=== PATIENT | female | born 1995 | race Caucasian/White ===

== ENCOUNTER 2019-03-01 10:22 | Emergency (ER) | payer SELFPAY ==
[2019-03-01 10:24] VITALS: BP 129/82; PULSE 96; RESP 17; TEMP 36.9; O2SAT 100; BMI 29.8
--- NOTE | 2019-03-01 10:40 | ED.VIS.GEN ---
History of Present Illness Chief Complaint: Vag Bleeding Narrative: Patient presenting for evaluation due to concern for possible miscarriage. Patient states that she has a underlying history of irregular periods. She states that she has not had a menstrual cycle since October. Patient states that on she started to have some vaginal bleeding. It began to be associated with some cramping, heavier bleeding today, and then she passed what she felt like was tissue. Patient is never been before, she did not take a test at home with this. She is unsure of her blood type. She states that since passing the tissue, the bleeding and cramping has since slowed down. She denies any history of bleeding dyscrasias. Is not any sort of medications. Review of systems otherwise negative. Past Medical History - Allergies and Home Meds Allergies/Adverse Reactions: Allergies No Known Allergies Allergy (Verified 03/01/19 10:23) Primary Care Physician: Aniyah Zamarripa [STAFF PHYSICIAN] - 3-5 Days Past Medical History: None Smoking Status: Never smoker Review of Systems All systems negative except as indicated Genitourinary: Reports: - - Vaginal bleeding and loss of tissue Physical Exam Vital Signs/Narrative: Vital Signs Temp Pulse Resp BP Pulse Ox 03/01/19 10:24 98.5 F 96 17 129/82 H 100 General: Well nourished, Well developed, No Acute Distress Head: Normocephalic, Atraumatic Eyes: Perrl, EOMI ENT: Moist mucous membranes, No rhinorrhea Neck: Supple, Nontender Cardiovascular: Regular rate, Regular rhythm, No murmurs Respiratory: No distress, CTA bilaterally, Chest nontender Abdomen: Soft, Nontender, Nondistended, Normal bowel sounds Back: Nontender, Normal Inspection Extremities: Nontender, No edema Skin: Normal color, No rash Neurological: Alert, Oriented x3, Cranial nerves II-XII grossly intact, Normal Strength, Normal Sensation Psychological: Normal affect, Normal Mood Diagnostic/Tx/Re-eval - Medical Decision Making Patient presented with possible miscarriage. I did examine what the patient stated was potentially her products of conception, and it does seem like this is products of conception rather than blood clot. ABO Rh was sent as well as test. test was found to be positive. Patient was found to have O- blood type. She was ordered RhoGam. I did discuss the patient's case with EMPLOYEE COMMUNICATIONS MANAGER to arrange close follow-up. I educated the patient on signs and symptoms of retained products of conception and the importance of follow-up with EMPLOYEE COMMUNICATIONS MANAGER. Patient was discharged in stable condition. ED Disposition - Plan for ED Patient: Disposition: Home or Assisted Living Diagnosis: Complete miscarriage, Type O blood, Rh negative Instructions: Miscarriage Referrals: Aniyah Zamarripa [STAFF PHYSICIAN] - 3-5 Days
[2019-03-01 11:06] LABS: Internal QC Validated? YES +Cl - CLEAR BKGD; Pregnancy, Serum, hCG Quali. POSITIVE Negative
[2019-03-01 13:16] VITALS: BP 108/63; PULSE 73; RESP 18; O2SAT 98
== END 2019-03-01 13:18 | disposition home or self-care (01) ==
PROVIDERS: Emergency Provider Emergency Medicine
DX: O03.9 Complete or unspecified spontaneous abortion without complication (principal)
CPT/HCPCS: 84703; 86900; 86901; 90384; 96372; 99282; J2790

== ENCOUNTER → 2019-11-18 11:15 | Outpatient (CLI) | payer SELFPAY ==
[2019-10-02 09:53] VITALS: BMI 29.8
[2019-11-18 10:59] VITALS: BMI 29.8
[2019-11-18 11:36] LABS: Absolute Lymphocyte Count 2.07 X10^3/uL (0.83-4.51); Absolute Neutrophil Count 9.3 X10^3/uL (2.0-7.7); Basophil# 0.04 X10^3/uL; Basophil% 0.3 % (0-1); Eosinophil# 0.23 X10^3/uL; Eosinophils% 1.8 % (0-5); Hematocrit 36.5 % (37-47); Hemoglobin 12.7 g/dL (12.0-15.0); Lymphocyte # 2.07 X10^3/ul (4.0); Lymphocyte % 16.6 % (19-41); Mean Corp Hgb Conc 34.8 g/dL (32-36); Mean Corpuscular Hgb 32.1 pg (27.0-32.0); Mean Corpuscular Volume 92.2 fL (81-99); Monocyte# 0.75 X10^3/uL; NRBC Flagged by Analyzer 0 % (0-5); Neutrophil % 74.6 % (47-70); Platelet Count 214 K/mm3 (150-450); RBC Distribution Width CV 12.6 % (11.6-14.6); RBC Distribution Width SD 41.6 fl (35.1-43.9); Red Blood Count 3.96 M/mm3 (4.2-5.4); White Blood Count 12.5 K/mm3 (4.4-11.0)
--- NOTE | 2019-11-18 18:00 | US_ITS ---
STUDY: SECOND AND THIRD TRIMESTER OBSTETRICAL ULTRASOUND REASON FOR EXAM: Female, 23 years old ANATOMY LMP: July 03, 2019. TECHNIQUE: Transabdominal TECHNICAL QUALITY: Adequate. PRIOR ULTRASOUND: None. FINDINGS: There is a single intrauterine fetus. The fetus is in a breech presentation. There is demonstrated cardiac activity with a heart rate of 143/169 bpm. There is a normal amniotic fluid volume. The largest amniotic fluid pocket measures 5.6 cm. The amniotic fluid index (NILA) is within normal limits. The placenta is posterior in location and is not low lying. There are Grade 1 placental changes. The cervix measures 4.3 cm in length. The bilateral adnexal regions are normal. BIOMETRY: BPD: 4.11 cm: 18 weeks, 4 days HC: 16.73 cm: 19 weeks, 3 days AC: 13.9 cm: 9 weeks, 3 days FL: 3.41 cm: 20 weeks, 6 days CI: 71% FL/BPD: 83% FL/HC: FL/AC: 25% HC/AC: 1.2 age by current US: 19 weeks, 4 days. KIKO by current US: April 09, 2020. Estimated weight: 317 grams, +/- 46 grams, 54 %. Age by LMP: 19 weeks, 5 days. KIKO by LMP: April 08, 2020. ANATOMY: Gender: Female Cranium: Normal lateral ventricles. Normal choroid plexus. Normal cerebellum. Normal cisterna magna. Normal face, nose and lips. Chest: Normal 4-chamber heart. Abdomen/Pelvis: Normal diaphragm. Normal stomach. Normal abdominal wall. Normal cord insertion. Normal 3 vessel cord. Normal kidneys. Normal bladder. Spine: Normal cervical spine. Normal thoracic spine. Normal lumbar spine. Normal sacrum. Extremities: Normal bilateral upper extremities. Normal bilateral lower extremities. US/OB Anatomy Scan IMPRESSION: Single live intrauterine gestation with a mean gestational age of 19 weeks and 4 days. Electronically Signed: Brent Baker, at 15:48 EDT , Service support ,
== END ==
PROVIDERS: Nurse Practitioner Women's Health; Referring Provider Obstetrics & Gynecology; Visit Provider Obstetrics & Gynecology
DX: Z34.00 Encounter for supervision of normal first pregnancy, unspecified trimester (principal); Z3A.13 13 weeks gestation of pregnancy
CPT/HCPCS: 36415; 76805; 85025; 87086; 87088

== ENCOUNTER → 2020-01-16 10:48 | Outpatient (CLI) | payer SELFPAY ==
[2019-12-19 11:02] VITALS: BMI 29.8
[2020-01-16 11:18] LABS: Absolute Lymphocyte Count 1.95 X10^3/uL (0.83-4.51); Basophil# 0.04 X10^3/uL; Basophil% 0.3 % (0-1); Eosinophil# 0.19 X10^3/uL; Eosinophils% 1.6 % (0-5); Hematocrit 32.5 % (37-47); Hemoglobin 11.3 g/dL (12.0-15.0); Lymphocyte # 1.95 X10^3/ul (4.0); Mean Corp Hgb Conc 34.8 g/dL (32-36); Mean Corpuscular Hgb 32.8 pg (27.0-32.0); Mean Corpuscular Volume 94.2 fL (81-99); Mean Platelet Vol. 11.5 fl (6.2-12.0); Monocyte# 0.78 X10^3/uL; Monocyte% 6.4 % (0-10); NRBC Flagged by Analyzer 0 % (0-5); Neutrophil # 8.97 X10^3/uL (2.7-7.7); Neutrophil % 73.6 % (47-70); Platelet Count 216 K/mm3 (150-450); RBC Distribution Width CV 13.1 % (11.6-14.6); RBC Distribution Width SD 44.9 fl (35.1-43.9); Red Blood Count 3.45 M/mm3 (4.2-5.4); White Blood Count 12.2 K/mm3 (4.4-11.0)
[2020-01-16 11:27] LABS: Glucose Challenge Gest 1H 50g 100 mg/dL (70-140)
== END ==
PROVIDERS: Referring Provider Obstetrics & Gynecology; Visit Provider Obstetrics & Gynecology
DX: Z34.90 Encounter for supervision of normal pregnancy, unspecified, unspecified trimester (principal); Z67.91 Unspecified blood type, Rh negative
CPT/HCPCS: 36415; 82950; 85025; 86850; 86900; 86901

== ENCOUNTER → 2020-03-11 16:52 | Outpatient (CLI) | payer SELFPAY ==
[2020-03-11 15:56] VITALS: BMI 33.1
== END ==
PROVIDERS: Visit Provider Obstetrics & Gynecology
DX: Z34.90 Encounter for supervision of normal pregnancy, unspecified, unspecified trimester (principal)
CPT/HCPCS: 87081

== ENCOUNTER 2020-03-31 18:38 | Inpatient (IN) | payer SELFPAY ==
[2020-03-26 14:21] VITALS: BMI 34.0
[2020-03-31] VITALS (16 sets, daily range): BP systolic 104–135; BP diastolic 55–84; PULSE 78–112; RESP 16–20; TEMP 36.2–37.5; O2SAT 96–100; BMI 33.3
[2020-03-31] MEDS: Lactated Ringers 1,000 ML 999 ML IV (18:20)
[2020-03-31 18:52] LABS: Mucous, Urine 0 SEEN /hpf (<or=2+); Red Blood Cells-Urine 0 SEEN /hpf (0-5)
--- NOTE | 2020-03-31 18:54 | PCM.HP.OB ---
- Problem List (1) Non-reassuring status Status: Acute (2) Decreased movements, third trimester, fetus 1 Status: Acute (3) 38 weeks gestation of Status: Acute Comment: COVID TESTING ORDERED 03/24/2020sc (4) Influenza vaccination declined Status: Acute Comment: 02/27/2020sc (5) Supervision of normal first Status: Acute Comment: (declined all NOB labs) KIKO 04/08/2020 Spouse: Adonay (6) Rh negative state in antepartum period Status: Acute Comment: O neg rhogam at 28 weeks- 01/15 (7) Status: Acute Qualifiers: Comment: declines genetic, carrier and NTD screening. encouraged urine culture, cbc t and s and rubella. Anatomy normal History Date of Admission: 03/31/20 Final KIKO: 04/08/20 Final KIKO Source: US <20 weeks Gestational age: 38 Weeks and 6 Days History of this : This is a 24 year-old, G 1 P 0, at 38 weeks gestational age who presented to OB triage for decreased movement. Upon arrival, she was noted to have minimal to absent variability with occasional late decelerations. The only periods of moderate variability were during decelerations. Baby did not respond to Vibra acoustic stimulation. A bedside biophysical profile was performed and was found to be 2 out of 10 with 2 points for fluid. There was no breathing or movement noted on biophysical profile. Medical History: Medical History (Last Reviewed 03/26/20 @ 14:02 by Vira Luna) H/O cardiac murmur Z86.79 H/O miscarriage, currently O09.299 Surgical History: Surgical History (Last Reviewed 03/26/20 @ 14:02 by Vira Luna) No significant past surgical history Allergies No Known Allergies Allergy (Verified 03/26/20 14:01) Home Medications: Home Medications multivitamin no.47-iron fum 27 mg-folate no.1 1 mg-dha 300 mg capsule cap PO 08/25/19 Boostrix Tdap 2.5 Lf unit-8 mcg-5 Lf/0.5 mL intramuscular syringe 0.5 ml IM ONCE #1 ml NS 01/16/20 Smoking Status: Never smoker Alcohol: None NST - FHR Rate Baby A Baseline: 150 Variability:: Minimal Accelerations:: None Decelerations:: Late NST Reactive:: Non-Reactive FHR Category:: Category II Uterine Activity:: rare contractions History Past Pregnancies: - hx SAB Expected Delivery Method: FILIPE Section Review of Systems Constitutional: Denies: Chills, Fever, Weight Change HEENT: Denies: Head Aches, Sinus Congestion, Sinus Drainage Cardiovascular: Denies: Chest Pain, Palpitations Respiratory: Denies: Cough, Shortness of breath at rest, Sputum production Gastrointestinal: Denies: Abdominal Pain, Nausea, Vomiting Genitourinary: Denies: Dysuria Musculoskeletal: Denies: Joint Pain, Joint Tenderness Skin: Denies: Rash, Wounds Neurological: Denies: Numbness, Tingling, Focal weakness Psychiatric: Denies: Anxiety, Depression, Homicidal Ideations, Suicidal Ideations Hematologic/ Lymphatic: Denies: Easy Bruising, Easy Bleeding Physical Exam Vitals: Vital Signs Temp Pulse BP Pulse Ox 99.5 F H 111 H 135/84 H 99 03/31/20 18:46 03/31/20 18:49 03/31/20 18:48 03/31/20 18:49 General: Alert, Oriented x3, No apparent distress HEENT: Atraumatic, Normocephalic. Negative for: Thyromegaly, Lymphadenopathy Cardiovascular: Regular rate Lungs: Normal air movement Abdomen: Bowel Sounds Present, Gravid, Appropriate for Gestational Age Neurological: Deep Tendon Reflexes 2+/4 and Symmetrical, Neuro grossly intact ORDER BOOKER: Normal external genitalia, Vulvar lesions Presentation: Cephalic Assessment/Plan All Active Problems (Last Reviewed 03/26/20 @ 14:02 by Vira Luna) Non-reassuring status (Acute) Decreased movements, third trimester, fetus 1 (Acute) 38 weeks gestation of (Acute) Influenza vaccination declined (Acute) Supervision of normal first (Acute) Rh negative state in antepartum period (Acute) (Acute) BMI 31.0-31.9,adult (Resolved) This is a 24 year-old, G 2, P 0, at 38 weeks gestational age admitted for 08/04 BPP. 1. Non-reassuring status Patient presented to OB triage for decreased movement. Found to have minimal to absent variability with late decelerations. Biophysical profile in triage was 2 out of 10. Recommendation was made that given patient is nulliparous and it was only fingertip in the office the recommendation would be to put proceed with a primary section. The risk, benefits, indications, and alternatives to the procedure were discussed with the patient including bleeding, infection, and visceral or vascular injury. Patient voiced understanding and agreed to proceed. All staff notified of plan to proceed with primary section as soon as possible. Ancef 2 g for antibiotic prophylaxis Blood type is Rh- Rubella pending Patient is [id number] OB labs ordered on admission.
[2020-03-31] MEDS: Sodium Citrate/Citric Acid 30 ML UDC PO (19:01)
[2020-03-31] MEDS: Cefazolin 2 GM in 0.9% Normal Saline 100 ML IV (19:03)
[2020-03-31 19:04] LABS: Color, Urine Yellow (Yellow); Glucose, Dipstick Normal (Normal); Ketone-Dipstick Negative (Negative); Leukocyte Esterase-Dipstick 500 /ul (Negative); Nitrite-Dipstick Negative (Negative); Occult Blood-Urine Negative /ul (Negative); Protein-Dipstick Negative (Negative); Urine Bilirubin Dipstick Negative (Negative); Urine Clarity Sl. Cloudy (Clear); Urine Urobilinogen Normal (Normal)
[2020-03-31 19:12] LABS: Squamous Epithelial Cells - UA 5-10 SEEN /hpf (5-10); White Blood Cells 10-25 SEEN /hpf (0-5)
[2020-03-31 19:13] LABS: Bacteria RARE /hpf (None Seen)
[2020-03-31 19:37] LABS: Absolute Neutrophil Count 8.4 X10^3/uL (2.0-7.7); Basophil# 0.03 X10^3/uL; Basophil% 0.2 % (0-1); Eosinophil# 0.17 X10^3/uL; Eosinophils% 1.4 % (0-5); Hematocrit 34.6 % (37-47); Hemoglobin 11.2 g/dL (12.0-15.0); Lymphocyte % 19.9 % (19-41); Mean Corp Hgb Conc 32.4 g/dL (32-36); Mean Corpuscular Hgb 29.6 pg (27.0-32.0); Mean Corpuscular Volume 91.5 fL (81-99); Mean Platelet Vol. 12.2 fl (6.2-12.0); Monocyte# 0.92 X10^3/uL; Monocyte% 7.6 % (0-10); NRBC Flagged by Analyzer 0 % (0-5); Neutrophil # 8.44 X10^3/uL (2.7-7.7); Neutrophil % 69.9 % (47-70); Platelet Count 224 K/mm3 (150-450); RBC Distribution Width CV 13.2 % (11.6-14.6); RBC Distribution Width SD 43.9 fl (35.1-43.9); Red Blood Count 3.78 M/mm3 (4.2-5.4); White Blood Count 12.1 K/mm3 (4.4-11.0)
--- NOTE | 2020-03-31 20:03 | PLAC_PTH ---
PATIENT: WANG THOMPSON LOC: [facility] U#:[id number] AGE/SX: 24/ ROOM: WP006 RE03/31/[address]: Dr. Sonja Milan MD : 1995 BED: 1 DIS: 04/02/2020 SPEC #: [id number] RECD: 04/01/20 08:45 STATUS: MAGNO RESuzie #: [id number] KRISTIN: 03/31/20 20:[address]: Sonja Milan DEPT: SURGICAL PATHOLOGY RECD BY: Leti Sahni ENTERED: 04/01/20 09:49 SP TYPE: PLACENTA OTHR DR: No Primary Care Phys Tissues: Placenta, NOS Procedures: Surgery Specimen Level V HEADER OPERATION: Primary section PRE-OP DIAGNOSIS: Labor TISSUE SUBMITTED: Placenta MICROSCOPIC DIAGNOSIS Placenta: Placental disc - third trimester placenta (633 gm). - Focal areas of intraparenchymal hemorrhage and infarction (largest measuring 1.5 cm in greatest dimension. - Focal villous congestion and hemorrhage. Membranes - focal circummarginate insertion. Umbilical cord - three blood vessels and focal increased spiraling. SJ:sayda 04/05/20 MICROSCOPIC DESCRIPTION Slides are reviewed. GROSS DESCRIPTION SPECIMEN: PLACENTA / CLINICAL INFORMATION: A. Weight: 2.58 kg B. Gestational Age: 38 weeks C. Sex: Female PLACENTAL WEIGHT (POST FIXATION): 633 gm PLACENTAL DIMENSIONS: 16 x 15 x 4 cm PLACENTAL SHAPE: Usual ovoid PLACENTAL WEIGHT FOR GESTATIONAL AGE: Within >99th percentile MEMBRANES - Present A. Insertion: One-fourth circumference of placenta, 1.5 cm away from the margin. B. Site of rupture from edge: 4 cm from edge of placental disc C. Color of membrane: Rai-krause D. Abnormalities: None UMBILICAL CORD - Present A. Color: Rai-krause B. Insertion: Paracentral C. Length: 40 cm D. Diameter: 1 cm E. Number of vessels: Three F. Abnormalities: Focal areas show increased spiraling. PLACENTAL DISC - Present A. Color of surface: Rai-krause B. surface abnormalities: None C. Maternal cotyledons: Intact with minimal tears D. Attached retro placental clot: No clot E. Cut surface: Dark red and spongy F. Lesions: Sections reveal multiple rai, indurated to hemorrhagic areas, the largest measuring 1.5 cm in greatest dimension. G. Separate clot: Absent SECTIONS SUBMITTED: 1. Membrane roll 2. Cord, maternal end, membrane away from the margin 3. Cord, end, lesion 4. Placental disc, and maternal surfaces, larger lesion 5. Placental disc, and maternal surfaces 6. Placental disc, and maternal surfaces, two peripheral lesions SJ:sayda 04/02/20 TC:3 CPT: 44510
--- NOTE | 2020-03-31 20:04 | PCM.OPRPT ---
Problem List (1) Non-reassuring status Status: Acute (2) Decreased movements, third trimester, fetus 1 Status: Acute (3) 38 weeks gestation of Status: Acute Comment: COVID TESTING ORDERED 03/24/2020sc (4) Influenza vaccination declined Status: Acute Comment: 02/27/2020sc (5) Supervision of normal first Status: Acute Comment: (declined all NOB labs) KIKO 04/08/2020 Spouse: Adonay (6) Rh negative state in antepartum period Status: Acute Comment: O neg rhogam at 28 weeks- 01/15 (7) Status: Acute Qualifiers: Comment: declines genetic, carrier and NTD screening. encouraged urine culture, cbc t and s and rubella. Anatomy normal Delivery Classification: FILIPE Final KIKO: 04/08/20 Final KIKO Source: US <20 weeks Gestational age: 38 Weeks and 6 Days hydroelectric plant mechanical engineer: Bronson Vidal Type of Anesthesia:: Spinal Special Medications: Ancef 2g Date of Procedure: 03/31/20 Pre-Operative Diagnosis: 08/04 Biophysical Profile Post-Operative Diagnosis: Same, meconium Indications: Patient is a 24-year-old G2, P0 at 38 weeks gestation who presented to OB triage for decreased movement. NST in triage showed minimal to absent variability with late decelerations. Biophysical profile was performed in triage and was 2 out of 10. The recommendation was made to proceed with a primary section for her concern for deteriorating status. Indications for : Distress Description of Procedure: The patient is a at 38 weeks gestation who presented for primary . Spinal anesthesia was placed without difficulty. Taylor catheter was placed. The patient was placed in the dorsal supine position with leftward tilt. Patient was prepped and draped in the normal sterile fashion. Pfannenstiel skin incision was made with the scalpel and carried through to the underlying layer of fascia with the scalpel. Fascia was nicked in the midline and the incision extended laterally. The rectus bellies were dissected off superiorly and inferiorly with out complication both sharply and bluntly. The peritoneum was entered digitally. The incision was stretched and a low transverse uterine incision was made with the scalpel. The infant's head was delivered atraumatically followed by the anterior and posterior shoulders without complication the rest of the infant delivered. The cord was clamped and cut and the was handed off to awaiting nurse. The placenta was delivered spontaneously immediately following and was noted to be intact and have a three-vessel cord. The uterus was exteriorized cleared of all clots and debris, and the incision was closed in a double layer closure using #1 Monocryl. The ovaries and fallopian tubes were noted to be within normal limits. The uterus was returned to the maternal abdomen and gutters were cleared of all clots and debris. The peritoneum was closed with 3-0 Monocryl in a running fashion. Gloves were changed prior to fascial closure. Fascia was closed with 0 PDS in a running fashion. Subcutaneous tissue was copiously irrigated and the skin was closed with 3-0 Monocryl in a subcuticular fashion. Mepilex dressing was applied without complication. Patient was taken to recovery in stable condition. It was discussed with the patient that based on the clinical information obtained during this encounter, combined with her history, at this time I feel that based on the fact that the section was only for indications, patient would be a good candidate for a trial of labor in the future. Amniotic Membrane Rupture Type: Artificial Amniotic Fluid Description: Thick meconium Placenta Disposition: Sent to Pathology Drain: Taylor to straight drain Cord Entanglement: None Esitmated Blood Loss (ml): 700 Gender: Female (1 minute): 1 (5 minute): 7 Delayed cord clamping: No Antibiotic Given: Ancef 2 grams IV x1 Pt instructed on risks of surgery: Bleeding, Anesthesia Risks, Infection, Need for Future C-Sections, Injury to surrounding structure(s) including bowel and bladder - Admit VTE Documentation VTE Present on Admission: No VTE Mechan Device Prophylaxis: SCD's VTE Pharm Prophylaxis ordered?: No Multi Select Codes - Urinary/Genital Urinary/Genital CPT Codes: 68738 Delivery [facility]
[2020-03-31 21:05] LABS: HIV - WCH Non-Reactive (Nonreactive); Hepatitis B Surface Antigen Non-Reactive (Nonreactive); Hepatitis C Antibody Non-Reactive (Nonreactive)
[2020-03-31 21:06] LABS: Amphetamine Urine VISTA NEGATIVE (<1000 ng/mL); Barbiturate Urine VISTA NEGATIVE (< 200 ng/mL); Benzodiazepine Urine VISTA NEGATIVE (< 200 ng/mL); Cocaine Urine VISTA NEGATIVE (< 300 ng/mL); Ecstacy Urine VISTA NEGATIVE (< 500 ng/mL); Methadone Urine VISTA NEGATIVE (< 300 ng/mL); PCP Urine VISTA NEGATIVE (< 25 ng/mL); THC Urine VISTA NEGATIVE (< 50 ng/mL); Vista UDS pH Range 6
[2020-03-31] MEDS: Oxytocin 30 units/NS 500 ml 30 UNITS/500 ML IV.SOLN 167 UNITS IV (21:11)
[2020-03-31 22:29] LABS: Chlamydia Trachomatis by PCR Negative (Negative); Neisserai gonorrhoeae by PCR Negative (Negative); Probe Check PASS; Sample Adequacy Control PASS; Specimen Processing Control PASS
[2020-03-31] MEDS: Acetaminophen 500 MG Tablet 1000 MG PO (23:34)
[2020-03-31] MEDS: Ibuprofen 600 MG Tablet PO (23:34)
[2020-04-01] VITALS (8 sets, daily range): BP systolic 96–115; BP diastolic 47–68; PULSE 68–98; RESP 14–18; TEMP 36.2–37.3; O2SAT 95–99
[2020-04-01] MEDS: Lactated Ringers 1,000 ML 100 ML IV (00:24)
[2020-04-01 01:34] LABS: Rapid Plasmin Reagin (RPR) NONREACTIVE (NONREACTIVE)
[2020-04-01 04:53] LABS: Hematocrit 29.7 % (37-47); Hemoglobin 9.7 g/dL (12.0-15.0); Mean Corp Hgb Conc 32.7 g/dL (32-36); Mean Corpuscular Hgb 29.9 pg (27.0-32.0); Mean Corpuscular Volume 91.7 fL (81-99); Mean Platelet Vol. 11.5 fl (6.2-12.0); Platelet Count 192 K/mm3 (150-450); RBC Distribution Width CV 13.1 % (11.6-14.6); RBC Distribution Width SD 42.9 fl (35.1-43.9); Red Blood Count 3.24 M/mm3 (4.2-5.4); White Blood Count 15.6 K/mm3 (4.4-11.0)
[2020-04-01] MEDS: Acetaminophen 500 MG Tablet 1000 MG PO ×3 (05:43→18:41)
[2020-04-01] MEDS: Ibuprofen 600 MG Tablet PO ×3 (05:43→18:41)
--- NOTE | 2020-04-01 08:11 | PCM.PN.OB ---
Patient Problems: Active and Suspected Problems (Last Reviewed 03/26/20 @ 14:02 by Vira Luna) Non-reassuring status (Acute) Subjective: Patient doing well without complaints. Tolerating PO. Pain controlled. Ambulating and voiding without difficulty. Breast feeding well. Denies chest pain, shortness of breath, calf pain/swelling, fevers, chills, lightheadedness. Objective: Laboratory Tests 04/01/20 04/01/20 03/31/20 Range/Units 04:45 04:45 18:25 WBC 15.6 H (4.4-11.0) K/mm3 RBC 3.24 L (4.2-5.4) M/mm3 Hgb 9.7 L (12.0-15.0) g/dL Hct 29.7 L (37-47) % MCV 91.7 (81-99) fL MCH 29.9 (27.0-32.0) pg MCHC 32.7 (32-36) g/dL RDW Std Deviation 42.9 (35.1-43.9) fl RDW Coeff of Fabian 13.1 (11.6-14.6) % Plt Count 192 (150-450) K/mm3 MPV 11.5 (6.2-12.0) fl Immature Gran % (Auto) (0.0-0.9) % Neut % (Auto) (47-70) % Lymph % (Auto) (19-41) % [place] % (Auto) (0-10) % Eos % (Auto) (0-5) % Baso % (Auto) (0-1) % Absolute Neuts (auto) (2.0-7.7) X10^3/uL Absolute Lymphs (auto) (0.83-4.51) X10^3/uL Nucleated RBC % (0-5) % Urine Color (Yellow) Urine Clarity (Clear) Urine pH (5.0 - 8.0) Ur Specific [place] (1.002-1.030) Urine Protein (Negative) mg/dl Urine Glucose (UA) (Normal) mg/dl Urine Ketones (Negative) mg/dl Urine Occult Blood (Negative) /ul Urine Nitrite (Negative) Urine Bilirubin (Negative) mg/dL Urine Urobilinogen (Normal) mg/dl Ur Leukocyte Esterase (Negative) /ul Urine RBC (0-5) /hpf Urine WBC (0-5) /hpf Ur Squamous Epith Cells (5-10) /hpf Urine Bacteria (None Seen) /hpf Urine Mucus (<or=2+) /hpf Urine Opiates Screen (< 300 ng/mL) Urine Methadone Screen (< 300 ng/mL) Ur Barbiturates Screen (< 200 ng/mL) Ur Phencyclidine Scrn (< 25 ng/mL) Ur Amphetamines Screen (<1000 ng/mL) U Methamphetamin-MDMA (< 500 ng/mL) U Benzodiazepines Scrn (< 200 ng/mL) Urine Cocaine Screen (< 300 ng/mL) U Cannabinoids Screen (< 50 ng/mL) Ur Drug Screen Comment RPR (NONREACTIVE) Chlam trachomat DNA PCR (Negative) Hep Bs Antigen (Nonreactive) Hepatitis C Antibody (Nonreactive) HIV 1&2 Antibody (Nonreactive) N.gonorrhoeae DNA (PCR) (Negative) Blood Type Antibody Screen NEGATIVE Screen NEGATIVE (NEGATIVE) Baby's Blood Type B POSITIVE Baby's RUTHIE NEGATIVE (NEGATIVE) 03/31/20 03/31/20 03/31/20 Range/Units 18:25 18:25 18:25 WBC (4.4-11.0) K/mm3 RBC (4.2-5.4) M/mm3 Hgb (12.0-15.0) g/dL Hct (37-47) % MCV (81-99) fL MCH (27.0-32.0) pg MCHC (32-36) g/dL RDW Std Deviation (35.1-43.9) fl RDW Coeff of Fabian (11.6-14.6) % Plt Count (150-450) K/mm3 MPV (6.2-12.0) fl Immature Gran % (Auto) (0.0-0.9) % Neut % (Auto) (47-70) % Lymph % (Auto) (19-41) % [place] % (Auto) (0-10) % Eos % (Auto) (0-5) % Baso % (Auto) (0-1) % Absolute Neuts (auto) (2.0-7.7) X10^3/uL Absolute Lymphs (auto) (0.83-4.51) X10^3/uL Nucleated RBC % (0-5) % Urine Color Yellow (Yellow) Urine Clarity Sl. Cloudy (Clear) Urine pH 8.0 (5.0 - 8.0) Ur Specific [place] 1.010 (1.002-1.030) Urine Protein Negative (Negative) mg/dl Urine Glucose (UA) Normal (Normal) mg/dl Urine Ketones Negative (Negative) mg/dl Urine Occult Blood Negative (Negative) /ul Urine Nitrite Negative (Negative) Urine Bilirubin Negative (Negative) mg/dL Urine Urobilinogen Normal (Normal) mg/dl Ur Leukocyte Esterase 500 H (Negative) /ul Urine RBC 0 SEEN (0-5) /hpf Urine WBC 10-25 SEEN (0-5) /hpf Ur Squamous Epith Cells 5-10 SEEN (5-10) /hpf Urine Bacteria RARE (None Seen) /hpf Urine Mucus 0 SEEN (<or=2+) /hpf Urine Opiates Screen (< 300 ng/mL) Urine Methadone Screen (< 300 ng/mL) Ur Barbiturates Screen (< 200 ng/mL) Ur Phencyclidine Scrn (< 25 ng/mL) Ur Amphetamines Screen (<1000 ng/mL) U Methamphetamin-MDMA (< 500 ng/mL) U Benzodiazepines Scrn (< 200 ng/mL) Urine Cocaine Screen (< 300 ng/mL) U Cannabinoids Screen (< 50 ng/mL) Ur Drug Screen Comment RPR (NONREACTIVE) Chlam trachomat DNA PCR Negative (Negative) Hep Bs Antigen Non-Reactive (Nonreactive) Hepatitis C Antibody Non-Reactive (Nonreactive) HIV 1&2 Antibody Non-Reactive (Nonreactive) N.gonorrhoeae DNA (PCR) Negative (Negative) Blood Type Antibody Screen Screen (NEGATIVE) Baby's Blood Type Baby's RUTHIE (NEGATIVE) 03/31/20 03/31/20 03/31/20 Range/Units 18:25 18:25 18:25 WBC 12.1 H (4.4-11.0) K/mm3 RBC 3.78 L (4.2-5.4) M/mm3 Hgb 11.2 L (12.0-15.0) g/dL Hct 34.6 L (37-47) % MCV 91.5 (81-99) fL MCH 29.6 (27.0-32.0) pg MCHC 32.4 (32-36) g/dL RDW Std Deviation 43.9 (35.1-43.9) fl RDW Coeff of Fabian 13.2 (11.6-14.6) % Plt Count 224 (150-450) K/mm3 MPV 12.2 H (6.2-12.0) fl Immature Gran % (Auto) 1.000 H (0.0-0.9) % Neut % (Auto) 69.9 (47-70) % Lymph % (Auto) 19.9 (19-41) % [place] % (Auto) 7.6 (0-10) % Eos % (Auto) 1.4 (0-5) % Baso % (Auto) 0.2 (0-1) % Absolute Neuts (auto) 8.4 H (2.0-7.7) X10^3/uL Absolute Lymphs (auto) 2.40 (0.83-4.51) X10^3/uL Nucleated RBC % 0 (0-5) % Urine Color (Yellow) Urine Clarity (Clear) Urine pH (5.0 - 8.0) Ur Specific [place] (1.002-1.030) Urine Protein (Negative) mg/dl Urine Glucose (UA) (Normal) mg/dl Urine Ketones (Negative) mg/dl Urine Occult Blood (Negative) /ul Urine Nitrite (Negative) Urine Bilirubin (Negative) mg/dL Urine Urobilinogen (Normal) mg/dl Ur Leukocyte Esterase (Negative) /ul Urine RBC (0-5) /hpf Urine WBC (0-5) /hpf Ur Squamous Epith Cells (5-10) /hpf Urine Bacteria (None Seen) /hpf Urine Mucus (<or=2+) /hpf Urine Opiates Screen (< 300 ng/mL) Urine Methadone Screen (< 300 ng/mL) Ur Barbiturates Screen (< 200 ng/mL) Ur Phencyclidine Scrn (< 25 ng/mL) Ur Amphetamines Screen (<1000 ng/mL) U Methamphetamin-MDMA (< 500 ng/mL) U Benzodiazepines Scrn (< 200 ng/mL) Urine Cocaine Screen (< 300 ng/mL) U Cannabinoids Screen (< 50 ng/mL) Ur Drug Screen Comment RPR NONREACTIVE (NONREACTIVE) Chlam trachomat DNA PCR (Negative) Hep Bs Antigen (Nonreactive) Hepatitis C Antibody (Nonreactive) HIV 1&2 Antibody (Nonreactive) N.gonorrhoeae DNA (PCR) (Negative) Blood Type O NEGATIVE Antibody Screen TNP Screen (NEGATIVE) Baby's Blood Type Baby's RUTHIE (NEGATIVE) 03/31/20 Range/Units 18:10 WBC (4.4-11.0) K/mm3 RBC (4.2-5.4) M/mm3 Hgb (12.0-15.0) g/dL Hct (37-47) % MCV (81-99) fL MCH (27.0-32.0) pg MCHC (32-36) g/dL RDW Std Deviation (35.1-43.9) fl RDW Coeff of Fabian (11.6-14.6) % Plt Count (150-450) K/mm3 MPV (6.2-12.0) fl Immature Gran % (Auto) (0.0-0.9) % Neut % (Auto) (47-70) % Lymph % (Auto) (19-41) % [place] % (Auto) (0-10) % Eos % (Auto) (0-5) % Baso % (Auto) (0-1) % Absolute Neuts (auto) (2.0-7.7) X10^3/uL Absolute Lymphs (auto) (0.83-4.51) X10^3/uL Nucleated RBC % (0-5) % Urine Color (Yellow) Urine Clarity (Clear) Urine pH (5.0 - 8.0) Ur Specific [place] (1.002-1.030) Urine Protein (Negative) mg/dl Urine Glucose (UA) (Normal) mg/dl Urine Ketones (Negative) mg/dl Urine Occult Blood (Negative) /ul Urine Nitrite (Negative) Urine Bilirubin (Negative) mg/dL Urine Urobilinogen (Normal) mg/dl Ur Leukocyte Esterase (Negative) /ul Urine RBC (0-5) /hpf Urine WBC (0-5) /hpf Ur Squamous Epith Cells (5-10) /hpf Urine Bacteria (None Seen) /hpf Urine Mucus (<or=2+) /hpf Urine Opiates Screen NEGATIVE (< 300 ng/mL) Urine Methadone Screen NEGATIVE (< 300 ng/mL) Ur Barbiturates Screen NEGATIVE (< 200 ng/mL) Ur Phencyclidine Scrn NEGATIVE (< 25 ng/mL) Ur Amphetamines Screen NEGATIVE (<1000 ng/mL) U Methamphetamin-MDMA NEGATIVE (< 500 ng/mL) U Benzodiazepines Scrn NEGATIVE (< 200 ng/mL) Urine Cocaine Screen NEGATIVE (< 300 ng/mL) U Cannabinoids Screen NEGATIVE (< 50 ng/mL) Ur Drug Screen Comment RPR (NONREACTIVE) Chlam trachomat DNA PCR (Negative) Hep Bs Antigen (Nonreactive) Hepatitis C Antibody (Nonreactive) HIV 1&2 Antibody (Nonreactive) N.gonorrhoeae DNA (PCR) (Negative) Blood Type Antibody Screen Screen (NEGATIVE) Baby's Blood Type Baby's RUTHIE (NEGATIVE) - Physical Exam Vitals/I&O's: Vital Signs Temp Pulse Resp BP Pulse Ox 99.1 F 68 16 96/47 L 99 04/01/20 04:45 04/01/20 05:30 04/01/20 05:30 04/01/20 04:45 04/01/20 05:30 Oxygen Delivery Method Room Air Weight: 194 lb 0.108 oz Body Mass Index (BMI) 33.3 Intake and Output for Last 24 Hours 03/30/20 03/31/20 04/01/20 23:59 23:59 23:59 Intake Total 875.95 / 875.95 1100 / 1100 Output Total 350 / 350 650 / 650 Balance 525.95 / 525.95 450 / 450 General: Alert, Oriented x3, Cooperative HEENT: Atraumatic, PERRLA, EOMI, Normocephalic Neck: Supple, No JVD Lungs: Clear to auscultation, Normal air movement Cardiovascular: Regular rate, No murmurs Abdomen: Bowel Sounds Present, Soft, Non Tender Extremities: No edema, Capillary Refill Less than 3 Seconds Skin: No rashes, No breakdown Musculoskeletal: No Tenderness to Palpation of Joints or Extremities Neurological: Cranial nerves II-XII grossly intact Psych/Mental Status: Normal Affect, Appropriate Laboratory Results 03/31/20 18:10: Urine Opiates Screen NEGATIVE, Urine Methadone Screen NEGATIVE, Ur Barbiturates Screen NEGATIVE, Ur Phencyclidine Scrn NEGATIVE, Ur Amphetamines Screen NEGATIVE, U Methamphetamin-MDMA NEGATIVE, U Benzodiazepines Scrn NEGATIVE, Urine Cocaine Screen NEGATIVE, U Cannabinoids Screen NEGATIVE, Ur Drug Screen Comment 03/31/20 18:25: WBC 12.1 H, RBC 3.78 L, Hgb 11.2 L, Hct 34.6 L, MCV 91.5, MCH 29.6, MCHC 32.4, RDW Std Deviation 43.9, RDW Coeff of Fabian 13.2, Plt Count 224, MPV 12.2 H, Immature Gran % (Auto) 1.000 H, Neut % (Auto) 69.9, Lymph % (Auto) 19.9, [place] % (Auto) 7.6, Eos % (Auto) 1.4, Baso % (Auto) 0.2, Absolute Neuts (auto) 8.4 H, Absolute Lymphs (auto) 2.40, Nucleated RBC % 0 03/31/20 18:25: Rubella IgG Antibody Pending 03/31/20 18:25: RPR NONREACTIVE 03/31/20 18:25: Blood Type O NEGATIVE, Antibody Screen TNP 03/31/20 18:25: Hep Bs Antigen Non-Reactive, Hepatitis C Antibody Non-Reactive, HIV 1&2 Antibody Non-Reactive 03/31/20 18:25: Urine Color Yellow, Urine Clarity Sl. Cloudy, Urine pH 8.0, Ur Specific [place] 1.010, Urine Protein Negative, Urine Glucose (UA) Normal, Urine Ketones Negative, Urine Occult Blood Negative, Urine Nitrite Negative, Urine Bilirubin Negative, Urine Urobilinogen Normal, Ur Leukocyte Esterase 500 H, Urine RBC 0 SEEN, Urine WBC 10-25 SEEN, Ur Squamous Epith Cells 5-10 SEEN, Urine Bacteria RARE, Urine Mucus 0 SEEN 03/31/20 18:25: Chlam trachomat DNA PCR Negative, N.gonorrhoeae DNA (PCR) Negative 03/31/20 18:25: Antibody Screen NEGATIVE 04/01/20 04:45: WBC 15.6 H, RBC 3.24 L, Hgb 9.7 L, Hct 29.7 L, MCV 91.7, MCH 29.9, MCHC 32.7, RDW Std Deviation 42.9, RDW Coeff of Fabian 13.1, Plt Count 192, MPV 11.5 04/01/20 04:45: Screen NEGATIVE, Baby's Blood Type B POSITIVE, Baby's RUTHIE NEGATIVE Current Medications Acetaminophen (Tylenol) 1,000 mg PO Q6 JAMIE Last Admin: 04/01/20 05:43 Dose: 1,000 mg Documented by: Bisacodyl (Dulcolax) 10 mg RECTAL UD PRN PRN Reason: If no BM Diphenhydramine HCl (Benadryl) 25 mg PO Q6H PRN PRN PRN Reason: ITCHING Stop: 04/01/20 20:20 Hydrocortisone (Hytone) 1 applic TOPICAL TID PRN PRN; Protocol PRN Reason: Discomfort Naloxone HCl 4 mg/ Dextrose 504 mls @ 0 mls/hr IV .Q0M PRN; Protocol PRN Reason: To maintain Resp. rate >10 Lactated Ringer's () 1,000 mls @ 100 mls/hr IV .Q10H [facility] Last Admin: 04/01/20 00:24 Dose: 100 mls/hr Documented by: Ibuprofen (Motrin) 600 mg PO Q6 [facility] Last Admin: 04/01/20 05:43 Dose: 600 mg Documented by: Methylergonovine Maleate (Methergine) 0.2 mg IM X1 PRN PRN Reason: Uterine Atony Nalbuphine HCl (Nubain) 5 mg IV Q3H PRN PRN PRN Reason: ITCHING Stop: 04/01/20 20:20 Naloxone HCl (Narcan) 0.02 mg IV Q1M PRN PRN Reason: RR< 10 AND PT UNRESPONSIVE Ondansetron HCl (Zofran) 4 mg IV Q4H PRN PRN PRN Reason: Nausea Oxycodone HCl (Oxyir) 5 - 10 mg PO Q4H PRN PRN PRN Reason: Pain Score 4-10/10 Prochlorperazine Edisylate (Compazine Iv) 10 mg IV Q6H PRN PRN PRN Reason: NAUSEA Senna/Docusate Sodium (Senokot-S, Sangita-Colace) 0 tablet PO DAILY [facility] Simethicone (Mylicon) 80 mg PO PCHS PRN PRN Reason: Indigestion/stomach pain Sodium Chloride () 5 - 15 ml IV UD PRN PRN Reason: SALINE FLUSH Medical Necessity - Tobacco Use Smoking Status: Never smoker Assessment/Plan All Active Problems (Last Reviewed 03/26/20 @ 14:02 by Vira Luna) Non-reassuring status (Acute) Decreased movements, third trimester, fetus 1 (Acute) 38 weeks gestation of (Acute) Influenza vaccination declined (Acute) Supervision of normal first (Acute) Rh negative state in antepartum period (Acute) (Acute) BMI 31.0-31.9,adult (Resolved) s/p LTCS PPD # 1 1. routine post care 2. breast feeding- support given 3. rh negative 4. rubella immune
[2020-04-01 08:46] LABS: Pathology Specimen OB SEE PATHOLOGY REPORT
[2020-04-01] MEDS: Senna/Docusate Sodium 1 Tablet PO (12:41)
--- NOTE | 2020-04-01 22:43 | NURSING ---
saline lock discontinued by previous shift
[2020-04-02] MEDS: Ibuprofen 600 MG Tablet PO ×3 (00:50→12:01)
[2020-04-02] MEDS: Acetaminophen 500 MG Tablet 1000 MG PO ×2 (00:50→06:48)
[2020-04-02 02:14] VITALS: BP 90/70; PULSE 79; RESP 16; TEMP 36.7; O2SAT 98
--- NOTE | 2020-04-02 07:35 | PN.OBGYN_ITS ---
Patient Problems: Active and Suspected Problems (Last Reviewed 03/26/20 @ 14:02 by Vira Luna) Non-reassuring status (Acute) Subjective: Patient doing well without complaints. Tolerating PO. Pain controlled without narcotic pain medication. Ambulating and voiding without difficulty. Breast feeding well. Denies chest pain, shortness of breath, calf pain/swelling, fevers, chills, lightheadedness. Objective: Laboratory Tests 04/01/20 04/01/20 03/31/20 Range/Units 04:45 04:45 18:25 WBC 15.6 H (4.4-11.0) K/mm3 RBC 3.24 L (4.2-5.4) M/mm3 Hgb 9.7 L (12.0-15.0) g/dL Hct 29.7 L (37-47) % MCV 91.7 (81-99) fL MCH 29.9 (27.0-32.0) pg MCHC 32.7 (32-36) g/dL RDW Std Deviation 42.9 (35.1-43.9) fl RDW Coeff of Fabian 13.1 (11.6-14.6) % Plt Count 192 (150-450) K/mm3 MPV 11.5 (6.2-12.0) fl Immature Gran % (Auto) (0.0-0.9) % Neut % (Auto) (47-70) % Lymph % (Auto) (19-41) % [place] % (Auto) (0-10) % Eos % (Auto) (0-5) % Baso % (Auto) (0-1) % Absolute Neuts (auto) (2.0-7.7) X10^3/uL Absolute Lymphs (auto) (0.83-4.51) X10^3/uL Nucleated RBC % (0-5) % Urine Color (Yellow) Urine Clarity (Clear) Urine pH (5.0 - 8.0) Ur Specific [employer] (1.002-1.030) Urine Protein (Negative) mg/dl Urine Glucose (UA) (Normal) mg/dl Urine Ketones (Negative) mg/dl Urine Occult Blood (Negative) /ul Urine Nitrite (Negative) Urine Bilirubin (Negative) mg/dL Urine Urobilinogen (Normal) mg/dl Ur Leukocyte Esterase (Negative) /ul Urine RBC (0-5) /hpf Urine WBC (0-5) /hpf Ur Squamous Epith Cells (5-10) /hpf Urine Bacteria (None Seen) /hpf Urine Mucus (<or=2+) /hpf Urine Opiates Screen (< 300 ng/mL) Urine Methadone Screen (< 300 ng/mL) Ur Barbiturates Screen (< 200 ng/mL) Ur Phencyclidine Scrn (< 25 ng/mL) Ur Amphetamines Screen (<1000 ng/mL) U Methamphetamin-MDMA (< 500 ng/mL) U Benzodiazepines Scrn (< 200 ng/mL) Urine Cocaine Screen (< 300 ng/mL) U Cannabinoids Screen (< 50 ng/mL) Ur Drug Screen Comment RPR (NONREACTIVE) Chlam trachomat DNA PCR (Negative) Hep Bs Antigen (Nonreactive) Hepatitis C Antibody (Nonreactive) HIV 1&2 Antibody (Nonreactive) N.gonorrhoeae DNA (PCR) (Negative) Rubella IgG Antibody IU/mL Blood Type Antibody Screen NEGATIVE Screen NEGATIVE (NEGATIVE) Baby's Blood Type B POSITIVE Baby's RUTHIE NEGATIVE (NEGATIVE) 03/31/20 03/31/20 03/31/20 Range/Units 18:25 18:25 18:25 WBC (4.4-11.0) K/mm3 RBC (4.2-5.4) M/mm3 Hgb (12.0-15.0) g/dL Hct (37-47) % MCV (81-99) fL MCH (27.0-32.0) pg MCHC (32-36) g/dL RDW Std Deviation (35.1-43.9) fl RDW Coeff of Fabian (11.6-14.6) % Plt Count (150-450) K/mm3 MPV (6.2-12.0) fl Immature Gran % (Auto) (0.0-0.9) % Neut % (Auto) (47-70) % Lymph % (Auto) (19-41) % [place] % (Auto) (0-10) % Eos % (Auto) (0-5) % Baso % (Auto) (0-1) % Absolute Neuts (auto) (2.0-7.7) X10^3/uL Absolute Lymphs (auto) (0.83-4.51) X10^3/uL Nucleated RBC % (0-5) % Urine Color Yellow (Yellow) Urine Clarity Sl. Cloudy (Clear) Urine pH 8.0 (5.0 - 8.0) Ur Specific [employer] 1.010 (1.002-1.030) Urine Protein Negative (Negative) mg/dl Urine Glucose (UA) Normal (Normal) mg/dl Urine Ketones Negative (Negative) mg/dl Urine Occult Blood Negative (Negative) /ul Urine Nitrite Negative (Negative) Urine Bilirubin Negative (Negative) mg/dL Urine Urobilinogen Normal (Normal) mg/dl Ur Leukocyte Esterase 500 H (Negative) /ul Urine RBC 0 SEEN (0-5) /hpf Urine WBC 10-25 SEEN (0-5) /hpf Ur Squamous Epith Cells 5-10 SEEN (5-10) /hpf Urine Bacteria RARE (None Seen) /hpf Urine Mucus 0 SEEN (<or=2+) /hpf Urine Opiates Screen (< 300 ng/mL) Urine Methadone Screen (< 300 ng/mL) Ur Barbiturates Screen (< 200 ng/mL) Ur Phencyclidine Scrn (< 25 ng/mL) Ur Amphetamines Screen (<1000 ng/mL) U Methamphetamin-MDMA (< 500 ng/mL) U Benzodiazepines Scrn (< 200 ng/mL) Urine Cocaine Screen (< 300 ng/mL) U Cannabinoids Screen (< 50 ng/mL) Ur Drug Screen Comment RPR (NONREACTIVE) Chlam trachomat DNA PCR Negative (Negative) Hep Bs Antigen Non-Reactive (Nonreactive) Hepatitis C Antibody Non-Reactive (Nonreactive) HIV 1&2 Antibody Non-Reactive (Nonreactive) N.gonorrhoeae DNA (PCR) Negative (Negative) Rubella IgG Antibody IU/mL Blood Type Antibody Screen Screen (NEGATIVE) Baby's Blood Type Baby's RUTHIE (NEGATIVE) 03/31/20 03/31/20 03/31/20 Range/Units 18:25 18:25 18:25 WBC (4.4-11.0) K/mm3 RBC (4.2-5.4) M/mm3 Hgb (12.0-15.0) g/dL Hct (37-47) % MCV (81-99) fL MCH (27.0-32.0) pg MCHC (32-36) g/dL RDW Std Deviation (35.1-43.9) fl RDW Coeff of Fabian (11.6-14.6) % Plt Count (150-450) K/mm3 MPV (6.2-12.0) fl Immature Gran % (Auto) (0.0-0.9) % Neut % (Auto) (47-70) % Lymph % (Auto) (19-41) % [place] % (Auto) (0-10) % Eos % (Auto) (0-5) % Baso % (Auto) (0-1) % Absolute Neuts (auto) (2.0-7.7) X10^3/uL Absolute Lymphs (auto) (0.83-4.51) X10^3/uL Nucleated RBC % (0-5) % Urine Color (Yellow) Urine Clarity (Clear) Urine pH (5.0 - 8.0) Ur Specific [employer] (1.002-1.030) Urine Protein (Negative) mg/dl Urine Glucose (UA) (Normal) mg/dl Urine Ketones (Negative) mg/dl Urine Occult Blood (Negative) /ul Urine Nitrite (Negative) Urine Bilirubin (Negative) mg/dL Urine Urobilinogen (Normal) mg/dl Ur Leukocyte Esterase (Negative) /ul Urine RBC (0-5) /hpf Urine WBC (0-5) /hpf Ur Squamous Epith Cells (5-10) /hpf Urine Bacteria (None Seen) /hpf Urine Mucus (<or=2+) /hpf Urine Opiates Screen (< 300 ng/mL) Urine Methadone Screen (< 300 ng/mL) Ur Barbiturates Screen (< 200 ng/mL) Ur Phencyclidine Scrn (< 25 ng/mL) Ur Amphetamines Screen (<1000 ng/mL) U Methamphetamin-MDMA (< 500 ng/mL) U Benzodiazepines Scrn (< 200 ng/mL) Urine Cocaine Screen (< 300 ng/mL) U Cannabinoids Screen (< 50 ng/mL) Ur Drug Screen Comment RPR NONREACTIVE (NONREACTIVE) Chlam trachomat DNA PCR (Negative) Hep Bs Antigen (Nonreactive) Hepatitis C Antibody (Nonreactive) HIV 1&2 Antibody (Nonreactive) N.gonorrhoeae DNA (PCR) (Negative) Rubella IgG Antibody 129.0 IU/mL Blood Type O NEGATIVE Antibody Screen TNP Screen (NEGATIVE) Baby's Blood Type Baby's RUTHIE (NEGATIVE) 03/31/20 03/31/20 Range/Units 18:25 18:10 WBC 12.1 H (4.4-11.0) K/mm3 RBC 3.78 L (4.2-5.4) M/mm3 Hgb 11.2 L (12.0-15.0) g/dL Hct 34.6 L (37-47) % MCV 91.5 (81-99) fL MCH 29.6 (27.0-32.0) pg MCHC 32.4 (32-36) g/dL RDW Std Deviation 43.9 (35.1-43.9) fl RDW Coeff of Fabian 13.2 (11.6-14.6) % Plt Count 224 (150-450) K/mm3 MPV 12.2 H (6.2-12.0) fl Immature Gran % (Auto) 1.000 H (0.0-0.9) % Neut % (Auto) 69.9 (47-70) % Lymph % (Auto) 19.9 (19-41) % [place] % (Auto) 7.6 (0-10) % Eos % (Auto) 1.4 (0-5) % Baso % (Auto) 0.2 (0-1) % Absolute Neuts (auto) 8.4 H (2.0-7.7) X10^3/uL Absolute Lymphs (auto) 2.40 (0.83-4.51) X10^3/uL Nucleated RBC % 0 (0-5) % Urine Color (Yellow) Urine Clarity (Clear) Urine pH (5.0 - 8.0) Ur Specific [employer] (1.002-1.030) Urine Protein (Negative) mg/dl Urine Glucose (UA) (Normal) mg/dl Urine Ketones (Negative) mg/dl Urine Occult Blood (Negative) /ul Urine Nitrite (Negative) Urine Bilirubin (Negative) mg/dL Urine Urobilinogen (Normal) mg/dl Ur Leukocyte Esterase (Negative) /ul Urine RBC (0-5) /hpf Urine WBC (0-5) /hpf Ur Squamous Epith Cells (5-10) /hpf Urine Bacteria (None Seen) /hpf Urine Mucus (<or=2+) /hpf Urine Opiates Screen NEGATIVE (< 300 ng/mL) Urine Methadone Screen NEGATIVE (< 300 ng/mL) Ur Barbiturates Screen NEGATIVE (< 200 ng/mL) Ur Phencyclidine Scrn NEGATIVE (< 25 ng/mL) Ur Amphetamines Screen NEGATIVE (<1000 ng/mL) U Methamphetamin-MDMA NEGATIVE (< 500 ng/mL) U Benzodiazepines Scrn NEGATIVE (< 200 ng/mL) Urine Cocaine Screen NEGATIVE (< 300 ng/mL) U Cannabinoids Screen NEGATIVE (< 50 ng/mL) Ur Drug Screen Comment RPR (NONREACTIVE) Chlam trachomat DNA PCR (Negative) Hep Bs Antigen (Nonreactive) Hepatitis C Antibody (Nonreactive) HIV 1&2 Antibody (Nonreactive) N.gonorrhoeae DNA (PCR) (Negative) Rubella IgG Antibody IU/mL Blood Type Antibody Screen Screen (NEGATIVE) Baby's Blood Type Baby's RUTHIE (NEGATIVE) - Physical Exam Vitals/I&O's: Vital Signs Temp Pulse Resp BP Pulse Ox 98.1 F 79 16 90/70 98 04/02/20 02:14 04/02/20 02:14 04/02/20 02:14 04/02/20 02:14 04/02/20 02:14 Oxygen Delivery Method Room Air Weight: 194 lb 0.108 oz Body Mass Index (BMI) 33.3 Intake and Output for Last 24 Hours 03/31/20 04/01/20 04/02/20 23:59 23:59 23:59 Intake Total 875.95 / 875.95 1909 / 1909 Output Total 350 / 350 2049 Balance 525.95 / 525.95 -140 / -140 General: Alert, Oriented x3, Cooperative HEENT: Atraumatic, PERRLA, EOMI, Normocephalic Neck: Supple, No JVD, Negative Carotid Bruits Lungs: Normal air movement Cardiovascular: Regular rate Abdomen: Bowel Sounds Present, Soft, Non Tender Extremities: No edema, Capillary Refill Less than 3 Seconds Skin: No rashes, No breakdown Musculoskeletal: No Tenderness to Palpation of Joints or Extremities Neurological: Cranial nerves II-XII grossly intact Psych/Mental Status: Normal Affect, Appropriate Laboratory Results 03/31/20 18:25: Rubella IgG Antibody 129.0 Current Medications Acetaminophen (Tylenol) 1,000 mg PO Q6 JAMIE Last Admin: 04/02/20 06:48 Dose: 1,000 mg Documented by: Bisacodyl (Dulcolax) 10 mg RECTAL UD PRN PRN Reason: If no BM Hydrocortisone (Hytone) 1 applic TOPICAL TID PRN PRN; Protocol PRN Reason: Discomfort Naloxone HCl 4 mg/ Dextrose 504 mls @ 0 mls/hr IV .Q0M PRN; Protocol PRN Reason: To maintain Resp. rate >10 Ibuprofen (Motrin) 600 mg PO Q6 [facility] Last Admin: 04/02/20 06:48 Dose: 600 mg Documented by: Methylergonovine Maleate (Methergine) 0.2 mg IM X1 PRN PRN Reason: Uterine Atony Naloxone HCl (Narcan) 0.02 mg IV Q1M PRN PRN Reason: RR< 10 AND PT UNRESPONSIVE Ondansetron HCl (Zofran) 4 mg IV Q4H PRN PRN PRN Reason: Nausea Oxycodone HCl (Oxyir) 5 - 10 mg PO Q4H PRN PRN PRN Reason: Pain Score 4-10/10 Prochlorperazine Edisylate (Compazine Iv) 10 mg IV Q6H PRN PRN PRN Reason: NAUSEA Senna/Docusate Sodium (Senokot-S, Sangita-Colace) 0 tablet PO DAILY [facility] Last Admin: 04/01/20 12:41 Dose: 2 tablet Documented by: Simethicone (Mylicon) 80 mg PO PCHS PRN PRN Reason: Indigestion/stomach pain Last Admin: 04/02/20 02:05 Dose: 80 mg Documented by: Sodium Chloride () 5 - 15 ml IV UD PRN PRN Reason: SALINE FLUSH Medical Necessity - Tobacco Use Smoking Status: Never smoker Assessment/Plan All Active Problems (Last Reviewed 03/26/20 @ 14:02 by Vira Luna) Non-reassuring status (Acute) Decreased movements, third trimester, fetus 1 (Acute) 38 weeks gestation of (Acute) Influenza vaccination declined (Acute) Supervision of normal first (Acute) Rh negative state in antepartum period (Acute) (Acute) BMI 31.0-31.9,adult (Resolved) s/p LTCS PPD # 2 1. routine post care 2. breast feeding- support given 3. rh positive 4. rubella immune
--- NOTE | 2020-04-02 08:05 | DCINST_ITS ---
Discharge Diet: No Restrictions Discharge Activity: May Not Drive - for 2 weeks or while taking narcotic pain meds., May Shower, May Take a Tub Bath - in 7 days. May resume sexual activity in: 4-6 weeks Lifting Restrictions: 20 pounds Additional Activity Instructions:: Nothing in the vagina for 4-6 weeks. You may return to work/school in 6 weeks. Call your doctor if your incision/area has: Continuous Slow Oozing, Sudden Increased Bleeding, Increased Pain/ Swelling, Increased Redness, Foul Smelling Discharge Call your doctor if you observe: Fever of 101 or Higher Suture Line Care: Avoid Pulling/Pushing, Avoid Pinching/Bending Additional Instructions: If you experience any of the following, contact your healthcare provider. * Bleeding that soaks a pad every hour for 2 hours * Fever 100.4 or higher * Unrelieved incision or abdominal pain * Swelling, redness, discharge or bleeding from your incision or episiotomy site * Your incision begins to separate * Problems urinating (including inability to urinate or burning while urinating). * Visual changes * Severe headache * Flu-like symptoms * Pain or redness in one of both of your breasts * Pain, warmth, tenderness or swelling in your legs, especially the calf area * Frequent nausea and vomiting * Symptoms of depression or anxiety If you experience any of the following, call 911 or go to the nearest Emergency Room. * Chest pain * Problems breathing * Seizure activity * Partial or complete paralysis of a body part, slurred speech, weakness or drooping of the face, or a sudden inability to walk or hold your balance Allergies/Adverse Reactions: Allergies No Known Allergies Allergy (Verified 03/31/20 19:11) Medications to take at Discharge multivitamin no.47-iron fum 27 mg-folate no.1 1 mg-dha 300 mg capsule cap PO 08/25/19 Boostrix Tdap 2.5 Lf unit-8 mcg-5 Lf/0.5 mL intramuscular syringe 0.5 ml IM ONCE #1 ml NS 01/16/20 Follow-Up: Call to make an appointment with your doctor for an incision check in 1-2 weeks. You will also need a 6 week post- follow up appointment. Test results from this visit will be discussed in further detail at your follow- up appointment, if applicable. Primary Care Physician: Care Physician,No Primary [Primary Care Provider] -
[2020-04-02 09:06] VITALS: BP 119/77; PULSE 89; RESP 18; TEMP 36.7; O2SAT 97
[2020-04-02] MEDS: Senna/Docusate Sodium 1 Tablet PO (11:59)
== END 2020-04-02 12:05 | disposition home or self-care (01) | DRG 788 ==
LOC: WPOUT 18:40 → WP 18:40
PROVIDERS: Admitting Provider Obstetrics & Gynecology; Referring Provider Obstetrics & Gynecology; Visit Provider Obstetrics & Gynecology
DX: O76 Abnormality in fetal heart rate and rhythm complicating labor and delivery (principal); Z37.0 Single live birth; Z3A.38 38 weeks gestation of pregnancy; O77.0 Labor and delivery complicated by meconium in amniotic fluid
CPT/HCPCS: 59025; 59050; 80307; 81001; 85025; 85027; 85461; 86592; 86703; 86762; 86803; 86850; 86900; 86901; 87340; 87491; 87591; 88307; 90384; 99218; J7120; G0378; J2405; J2790

== ENCOUNTER 2021-05-03 22:25 | Emergency (ER) | payer SELFPAY ==
[2021-05-03 22:25] VITALS: BP 118/83; PULSE 97; RESP 16; TEMP 36.3; O2SAT 98; BMI 33.5
--- NOTE | 2021-05-03 22:53 | US_ITS ---
STUDY: FIRST TRIMESTER OBSTETRICAL ULTRASOUND REASON FOR EXAM: Female, 25 years old MID ABD PAIN LMP: Unknown. TECHNIQUE: Transvaginal TECHNICAL QUALITY: Adequate. PRIOR ULTRASOUND: None. FINDINGS: Intrauterine gestational sac and pole is noted. pole measuring 4.4 mm corresponding to 6 weeks 2 days gestational age. heart rate of 132 bpm. Unremarkable uterus and ovaries. Trace pelvic free fluid. US/Transvaginal w/Preg US IMPRESSION: Single live early IUP as above Electronically Signed: Socrates Kirkland DO at 0:04 EST Tel , Service support ,
--- NOTE | 2021-05-03 22:55 | ED.VIS.FEGU ---
HPI HPI - Female History of Present Illness Chief Complaint: Abd Pain Narrative Narrative: Patient is a G3, P1 who presents with her because of diffuse abdominal pain that she had since last evening. It is more of a sharp, stabbing pain but it can also be crampy. She denies any vaginal bleeding or discharge. No fevers or chills. No dysuria or hematuria. No problems with bowel movements. She states that she is currently breast-feeding and has had irregular periods since her last gestation. She gave 13 months ago. Since then, she has had irregular menses. She took a home test 2 weeks ago which was positive. She has not yet seen an [facility], and is unsure how far along she may be with this gestation. PFSH [facility] Medical History H/O cardiac murmur H/O miscarriage, currently Home Medications multivitamin no.47-iron fum 27 mg-folate no.1 1 mg-dha 300 mg capsule 1 cap PO DAILY 08/25/19 [History Last Taken Unknown] Boostrix Tdap 2.5 Lf unit-8 mcg-5 Lf/0.5 mL intramuscular syringe 0.5 ml IM ONCE #1 ml NS 01/16/20 [Clinic Last Taken Unknown] Allergy/AdvReac Type Severity Reaction Status Date / Time No Known Allergies Allergy Verified 05/03/21 22:28 Family History Grandfather Cancer Surgical History History of primary section No significant past surgical history Social History adopted: No household members: spouse housing: house current occupational status: employed current occupation: [employer] pets and animals: Yes sexually active: Yes Smoking Status: Never smoker second hand exposure: No alcohol intake: never substance use type: does not use seatbelt use: always do you feel safe at home: Yes additional social history: [place] ROS ROS ED ROS Narrative Constitutional: No fever, no chills. HEENT: No sore throat. No neck pain. No loss of vision. No rhinorrhea. Cardiovascular: No chest pain. No palpitations. No pedal edema. Respiratory: No cough, no shortness of breath. Abdominal: Positive diffuse, crampy to sharp abdominal pain. No nausea. No vomiting. Genitourinary: No dysuria. No hematuria. No vaginal bleeding. No vaginal discharge. No vaginal pain. Musculoskeletal: No myalgias. No arthralgias. Neurologic: No headaches. No dizziness. No lightheadedness. Skin: No rash. No change in color. Psychiatric: No depression. No anxiety. EXAM Physical Exam Narrative Exam Narrative: Afebrile. Vital signs noted. HEENT: Normocephalic. Atraumatic. PERRL, EOMI. Neck soft and supple. No point tenderness or step off. Cardiovascular: Regular rate and rhythm. No murmurs, rubs, or gallops appreciated. Respiratory: No tachypnea. Lungs clear to auscultation bilaterally. Gastrointestinal: Abdomen soft, nontender, with normoactive bowel sounds. No rebound or guarding. Neurological: Awake. Alert. Nonfocal, nonlateralizing. Skin: No rash. Normal color. No pallor. Musculoskeletal: No pedal edema. Full range of motion extremities. Const Vital Signs: 05/03/21 22:25 Temperature 97.4 F L Temperature Source Temporal Pulse Rate 97 Respiratory Rate 16 Blood Pressure 118/83 H Blood Pressure Mean 94 Pulse Ox 98 Oxygen Delivery Method Room Air MDM MDM MDM Narrative Medical decision making narrative: Comprehensive work-up was pursued. We will start with both a urine , and proceed to quantitative beta-hCG. Patient and state they are concerned about tubal . Her first gestation was a miscarriage. Her urine test is positive. hCG quantitative is appropriately elevated at 29,917. She does have an elevated white count of 17,000 which I think is nonspecific. Hemoglobin stable at 14.5. Blood type is O-. However, I do not feel that RhoGam is indicated at this time because there is no vaginal bleeding noted. Urinalysis shows no evidence of infection. Ultrasound shows pole and intrauterine with a heart rate of 132. Approximate estimated gestational age is 6 weeks and 2 days. Patient will follow up with her [facility] and start [id number] vitamins. At this point in time, I feel she can be discharged safely home with follow-up to her [facility]. Return instructions to the emergency department were reviewed. Patient and her are comfortable with the plan. Disposition is discharged home in stable condition. Lab Data Attestation: I reviewed the patient's lab results. Labs: Laboratory Results - last 24 hr 05/03/21 05/03/21 05/03/21 23:09 23:09 23:09 WBC 17.0 H RBC 4.74 Hgb 14.5 Hct 41.6 MCV 87.8 MCH 30.6 MCHC 34.9 RDW Std Deviation 40.9 RDW Coeff of Fabian 12.8 Plt Count 220 MPV 11.5 Immature Gran % (Auto) 1.400 H Neut % (Auto) 79.8 H Lymph % (Auto) 11.2 L Kerr % (Auto) 6.4 Eos % (Auto) 0.9 Baso % (Auto) 0.3 Absolute Neuts (auto) 13.6 H Absolute Lymphs (auto) 1.90 Nucleated RBC % 0 HCG, Quant 76300 H Urine Color Urine Clarity Urine pH Ur Specific [place] Urine Protein Urine Glucose (UA) Urine Ketones Urine Occult Blood Urine Nitrite Urine Bilirubin Urine Urobilinogen Ur Leukocyte Esterase Urine RBC Urine WBC Ur Squamous Epith Cells Urine Bacteria Urine Mucus Urine Test Blood Type O NEGATIVE 05/03/21 23:30 WBC RBC Hgb Hct MCV MCH MCHC RDW Std Deviation RDW Coeff of Fabian Plt Count MPV Immature Gran % (Auto) Neut % (Auto) Lymph % (Auto) Kerr % (Auto) Eos % (Auto) Baso % (Auto) Absolute Neuts (auto) Absolute Lymphs (auto) Nucleated RBC % HCG, Quant Urine Color Yellow Urine Clarity Clear Urine pH 7.0 Ur Specific [place] 1.005 Urine Protein Negative Urine Glucose (UA) Normal Urine Ketones Negative Urine Occult Blood Negative Urine Nitrite Negative Urine Bilirubin Negative Urine Urobilinogen Normal Ur Leukocyte Esterase Negative Urine RBC 0 SEEN Urine WBC 0 SEEN Ur Squamous Epith Cells 0-5 SEEN Urine Bacteria 0 SEEN Urine Mucus 0 SEEN Urine Test Positive H Blood Type Radiography Diagnostic Testing: Clinical Impression(s) from Imaging Studies Obstetrics Ultrasound 05/03/21 22:53 IMPRESSION: Single live early IUP as above Electronically Signed: Socrates Kirkland DO at 0:04 EST Tel , Service support , Discharge Plan Triage Chief Complaint: Abd Pain Other Complaint: ED Provider: Rishi Pinto Dx/Rx/DC Orders Prescriptions: No Action PNV-DHA 27 mg iron-1 mg -300 mg capsule 1 cap PO DAILY RF: 0 Boostrix Tdap 2.5-8-5 Lf-mcg-Lf/0.5mL syringe 0.5 ml IM ONCE Qty: 1 RF: 0 Primary Care Provider: Care Physician,No Primary
[2021-05-03 23:34] LABS: Absolute Neutrophil Count 13.6 X10^3/uL (2.0-7.7); Basophil# 0.05 X10^3/uL; Basophil% 0.3 % (0-1); Eosinophil# 0.15 X10^3/uL; Eosinophils% 0.9 % (0-5); Hematocrit 41.6 % (37-47); Hemoglobin 14.5 g/dL (12.0-15.0); Lymphocyte % 11.2 % (19-41); Mean Corp Hgb Conc 34.9 g/dL (32-36); Mean Corpuscular Hgb 30.6 pg (27.0-32.0); Mean Corpuscular Volume 87.8 fL (81-99); Mean Platelet Vol. 11.5 fl (6.2-12.0); Monocyte# 1.09 X10^3/uL; Monocyte% 6.4 % (0-10); NRBC Flagged by Analyzer 0 % (0-5); Neutrophil # 13.61 X10^3/uL (2.7-7.7); Neutrophil % 79.8 % (47-70); Platelet Count 220 K/mm3 (150-450); RBC Distribution Width CV 12.8 % (11.6-14.6); RBC Distribution Width SD 40.9 fl (35.1-43.9); Red Blood Count 4.74 M/mm3 (4.2-5.4)
[2021-05-03 23:43] LABS: Bacteria 0 SEEN /hpf (None Seen); Color, Urine Yellow (Yellow); Glucose, Dipstick Normal (Normal); Ketone-Dipstick Negative (Negative); Leukocyte Esterase-Dipstick Negative /ul (Negative); Mucous, Urine 0 SEEN /hpf (<or=2+); Nitrite-Dipstick Negative (Negative); Occult Blood-Urine Negative /ul (Negative); Protein-Dipstick Negative (Negative); Red Blood Cells-Urine 0 SEEN /hpf (0-5); Specific Gravity, Urine 1.005 (1.002-1.030); Urine Bilirubin Dipstick Negative (Negative); Urine Clarity Clear (Clear); Urine Urobilinogen Normal (Normal); White Blood Cells 0 SEEN /hpf (0-5)
[2021-05-03 23:52] LABS: Internal QC Validated? YES +Cl - CLEAR BKGD; Pregnancy, Urine Positive Negative; Squamous Epithelial Cells - UA 0-5 SEEN /hpf (5-10)
== END 2021-05-04 00:28 | disposition home or self-care (01) ==
PROVIDERS: Emergency Provider Emergency Medicine
DX: O26.891 Other specified pregnancy related conditions, first trimester (principal); R10.9 Unspecified abdominal pain; Z3A.00 Weeks of gestation of pregnancy not specified
CPT/HCPCS: 76817; 81001; 81025; 84702; 85025; 86900; 86901; 99284; A4216

== ENCOUNTER → 2021-05-24 13:10 | Outpatient (CLI) | payer SELFPAY | PROVIDERS: Visit Provider Obstetrics & Gynecology | DX: Z34.80 Encounter for supervision of other normal pregnancy, unspecified trimester (principal) | CPT/HCPCS: 87086; 87088 ==

== ENCOUNTER 2021-07-06 12:38 | Outpatient (CLI) | payer SELFPAY ==
[2021-07-06 13:06] LABS: Absolute Lymphocyte Count 1.15 X10^3/uL (0.83-4.51); Absolute Neutrophil Count 7.2 X10^3/uL (2.0-7.7); Basophil# 0.03 X10^3/uL; Basophil% 0.3 % (0-1); Eosinophil# 0.28 X10^3/uL; Hematocrit 40.2 % (37-47); Hemoglobin 13.9 g/dL (12.0-15.0); Lymphocyte # 1.15 X10^3/ul (0.83-4.51); Lymphocyte % 12.3 % (19-41); Mean Corp Hgb Conc 34.6 g/dL (32-36); Mean Corpuscular Volume 89.5 fL (81-99); Mean Platelet Vol. 10.8 fl (6.2-12.0); Monocyte# 0.68 X10^3/uL; Monocyte% 7.3 % (0-10); NRBC Flagged by Analyzer 0 % (0-5); Neutrophil # 7.17 X10^3/uL (2.7-7.7); Neutrophil % 76.6 % (47-70); Platelet Count 215 K/mm3 (150-450); RBC Distribution Width CV 13.2 % (11.6-14.6); RBC Distribution Width SD 43.1 fl (35.1-43.9); Red Blood Count 4.49 M/mm3 (4.2-5.4); White Blood Count 9.4 K/mm3 (4.4-11.0)
[2021-07-06 13:26] LABS: Glucose Challenge Gest 1H 50g 70 mg/dL (70-140)
[2021-07-06 13:40] LABS: Rubella IgG Reactive (Nonreactive)
== END 2021-07-06 23:59 | disposition short-term general hospital (02) ==
LOC: PAVLAB 12:38
PROVIDERS: Referring Provider Obstetrics & Gynecology; Visit Provider Obstetrics & Gynecology
DX: O99.210 Obesity complicating pregnancy, unspecified trimester (principal); Z3A.00 Weeks of gestation of pregnancy not specified
CPT/HCPCS: 36415; 82950; 85025; 86762; 86850; 86900; 86901